=== PATIENT | female | born 1980 | race African-American/Black ===

== ENCOUNTER 2018-09-04 15:51 | Emergency (ER) | payer BC, OTHER ==
[~2018-09-04] VITALS: Ht 160 cm; Wt 76.7 kg
[~2018-09-04 15:51] MED LIST: NORCO 5-325 TA1 EACH PO
[2018-09-04 17:54] LABS: ABSOLUTE NEUTROPHILS 2.9 thou/uL (1.4-8.2); BASOPHILS 0.3 % (0.0-2.0); EOSINOPHILS 2.1 % (0.0-3.0); HEMATOCRIT 32.3 % (37.0-47.0); HEMOGLOBIN 10.1 gm/dL (12.0-15.0); LYMPHOCYTES 44.9 % (24.0-44.0); MCH 21.6 pg (26.0-34.0); MCHC 31.2 g/dL (28.0-37.0); MONOCYTES 10.7 % (1.0-8.0); PLATELET COUNT 461 thou/uL (150-400); RBC 4.69 mil/uL (4.20-5.00); RDW 19.9 % (10.5-14.5); WBC 6.9 thou/uL (4.0-11.0)
[2018-09-04 17:57] VITALS: BP 145/90
--- NOTE | 2018-09-04 18:08 | EKG ---
[place] [address] [facility] [place] [address] ELECTROCARDIOGRAM REPORT Name: ALFREDO CHE Room #: REG EUSEBIO Hassan#: [id number] ������������������ Admission: 09/04/18 ������������������ Attend Phys: Discharge: ������������������ Date of : 80 Report #: [id number] ����������������������������������������������������������������� [id number] THIS REPORT FOR: //name// [facility] ED Test Date: 2018-09-04 Test Time: 15:59:48 Pat Name: ALFREDO CHE Department: Room: Gender: F Teletype Technician: : 1980 Requested By: Laura Awan Order Number: [id number] MD: Lucas Francisco Measurements Intervals [place] Rate: 76 P: 30 SD: 189 QRS: 38 QRSD: 91 T: 25 QT: 395 QTc: 445 Interpretive Statements Sinus rhythm Normal tracing Compared to ECG 10/22/2016 23:07:45 No significant changes Electronically Signed On 09-04-2018 18:08:46 CDT by Lucas Francisco [email or web address] ��������������������������������������������� <ELECTRONICALLY SIGNED> ���������������������������������������� By: Lucas Francisco MD, [facility] ��������������������������������������������� 09/04/18 1808 1559 1559 Lucas Francisco MD, FACC /EPI
[2018-09-04 18:23] LABS: APTT 24.7 Seconds (24.5-32.8); D-DIMER 0.36 ug/mLFEU (0.19-0.50); PROTIME 10.3 Seconds (9.3-11.4)
[2018-09-04 18:31] LABS: ANION GAP 9 mmol/L (7-16); BUN 11 mg/dL (7-18); CALCIUM 8.9 mg/dL (8.5-10.1); CHLORIDE 103 mmol/L (98-107); CO2 26 mmol/L (21-32); CREATININE 0.7 mg/dL (0.6-1.0); GLUCOSE 114 mg/dL (74-106); POTASSIUM 3.4 mmol/L (3.5-5.1); SODIUM 138 mmol/L (136-145)
[2018-09-04 18:40] LABS: ALBUMIN 3.9 g/dL (3.4-5.0); LIPASE 127 U/L (73-393); MAGNESIUM 2.1 mg/dL (1.8-2.4); SGOT 26 U/L (15-37); SGPT 43 U/L (30-65); TOTAL BILIRUBIN 0.2 mg/dL (<0.1-1.0); TOTAL PROTEIN 7.9 g/dL (6.4-8.2); TROPONIN-I <0.06 ng/mL (<0.06)
[2018-09-04] MEDS ORDERED: POTASSIUM20 PO (18:49)
[2018-09-04 18:53] LABS: ANISOCYTOSIS 1+; BURR CELLS OCCASIONAL; HYPOCHROMASIA 2+; MICROCYTES 1+
== END 2018-09-04 19:07 | disposition home or self-care (01) ==
LOC: ER 15:51
PROVIDERS: Physician Assistant
DX: I10 Essential (primary) hypertension (principal); D64.9 Anemia, unspecified; E87.6 Hypokalemia; M06.9 Rheumatoid arthritis, unspecified